=== PATIENT | female | born 1950 | race Caucasian/White ===

== ENCOUNTER 2018-01-01 19:30 | Inpatient (IN) | payer MEDICARE ==
[~2018-01-01] VITALS: Ht 165.1 cm; Wt 74.8 kg
[~2018-01-01 19:30] MED LIST: DEPA250T PO; FERR324T4 PO; GABA300C3 PO; HYDR-2768 PO; LEXA20TA PO; LISI-363 PO; LORC10TA PO; PROM25SU8 PO; ZITH500T PO; ZOCO80TA PO
[2018-01-01 19:39] VITALS: BP 196/88; PULSE 65; RESP 20; TEMP 97.8; O2SAT 98
[2018-01-01] MEDS ORDERED: ONDANSETRON HCL 4 MG/2 ML VIAL ONE (19:57)
[2018-01-01] MEDS ORDERED: DICY20TA10 PO (20:03)
[2018-01-01] MEDS ORDERED: FENO160T PO (20:03)
[2018-01-01] MEDS ORDERED: PRAV40TA2 PO (20:03)
[2018-01-01] MEDS ORDERED: VORT1TAB3 PO (20:03)
[2018-01-01] MEDS ORDERED: LISI-515 PO (20:03)
[2018-01-01] MEDS ORDERED: RANI150T PO (20:03)
[2018-01-01] MEDS ORDERED: HYDR25TA5 PO (20:03)
[2018-01-01 20:04] VITALS: O2SAT 96
[2018-01-01 20:13] LABS: AUTOMATED NEUTROPHIL # 4.1 TH/MM3 (1.8-7.7); BASOPHIL # 0.1 TH/MM3 (0-0.2); BASOPHIL % 1.7 % (0.0-2.0); EOSINOPHIL # 0.1 TH/MM3 (0-0.4); EOSINOPHIL % 1.9 % (0.0-4.0); LYMPH % 25.8 % (9.0-44.0); LYMPHOCYTE # 1.7 TH/MM3 (1.0-4.8); MEAN CELL VOLUME 89.5 FL (80.0-100.0); MEAN CORPUSCULAR HEMOGLOBIN 29.1 PG (27.0-34.0); MEAN CORPUSCULAR HGB CONC 32.6 % (32.0-36.0); MEAN PLATELET VOLUME 10.3 FL (7.0-11.0); MONO % 8.2 % (0.0-8.0); MONOCYTE # 0.5 TH/MM3 (0-0.9); NEUT % 62.4 % (16.0-70.0); PLATELET COUNT 198 TH/MM3 (150-450); RED BLOOD COUNT 5.48 MIL/MM3 (4.00-5.30); RED CELL DISTRIBUTION WIDTH 13.5 % (11.6-17.2); WHITE BLOOD COUNT 6.4 TH/MM3 (4.0-11.0)
[2018-01-01] MEDS ORDERED: ONDANSETRON HCL 4 MG/2 ML VIAL IV PUSH ONE (20:15)
[2018-01-01 20:23] LABS: CHLORIDE 104 MEQ/L (98-107); SODIUM (NA) 140 MEQ/L (136-145)
[2018-01-01 20:27] LABS: ALBUMIN 4.1 GM/DL (3.4-5.0); BICARBONATE 28.5 MEQ/L (21.0-32.0); BLOOD UREA NITROGEN 23 MG/DL (7-18); GLUCOSE,RANDOM 123 MG/DL (74-106)
[2018-01-01 20:30] LABS: ALT (GPT) 766 U/L (10-53); GLOMERULAR FILTRATION RATE 45 ML/MIN (>89)
[2018-01-01] MEDS ORDERED: KETOROLAC TROMETHAMINE 30 MG/ML (IVP) VIAL IV PUSH ONE (20:30)
[2018-01-01] MEDS ORDERED: SODIUM CHLOR 0.9% 1000 ML INJ 1,000 ML IV ONE (20:30)
[2018-01-01 20:31] LABS: TOTAL BILIRUBIN ADULT 1.5 MG/DL (0.2-1.0)
--- NOTE | 2018-01-01 20:31 | PD ---
HPI Chief Complaint: Abdominal Pain Time Seen by Provider: 20:16 Travel History International Travel<30 days: No Contact w/Intl Traveler<30days: No Traveled to known affect area: No History of Present Illness HPI Patient is a 67-year-old female with history of hypertension and hyperlipidemia and diabetes who presents to emergency room with complaints of epigastric pain. Patient reports that she has had this abdominal pain for the past 3 days, patient reports that pain has been persistent. Patient reports the pain has been more severe today prompting her to come to the emergency room for evaluation. Patient reports that while waiting the emergency room, she began to feel nauseous and had one episode of vomiting. Patient reports that pain started abruptly 3 days ago, she is unsure as to nature of the pain. Patient reports that nothing makes the pain better or worse. Patient reports that she has a normal appetite, denies any chest pain or shortness of breath. Patient denies any constipation or diarrhea, denies history of similar symptoms in the past. Patient did report that she recently had a cholecystectomy at the end of last year. Patient unsure of who her surgeon was. Patient with no fever or chills, no sick contacts. PFSH Past Medical History Depression: Yes High Cholesterol: Yes Diabetes: Yes (HX of but not anymore) Patient Takes Glucophage: No Diminished Hearing: No GERD: Yes Hypertension: Yes Seizures: Yes Tetanus Vaccination: Unknown Influenza Vaccination: Yes Past Surgical History Abdominal Surgery: Yes (hernia) Cholecystectomy: Yes Hysterectomy: Yes Neurologic Surgery: Yes (NECK SURGERY WITH HALO) Social History Alcohol Use: No Tobacco Use: No Substance Use: No Allergies-Medications (Allergen,Severity, Reaction): Coded Allergies: Sulfa (Sulfonamide Antibiotics) (Verified Allergy, Severe, Rash, 01/01/18) codeine (Verified Allergy, Severe, Rash, 01/01/18) penicillin V (Verified Allergy, Severe, 01/01/18) Reported Meds & Prescriptions Reported Meds & Active Scripts Active Reported Fenofibrate 160 Mg Tab 200 Mg PO DAILY Dicyclomine (Dicyclomine HCl) 20 Mg Tab 20 Mg PO BID Ranitidine (Ranitidine HCl) 150 Mg Tab 150 Mg PO BID Hydrochlorothiazide 25 Mg Tab 25 Mg PO DAILY Lisinopril 20 Mg Tab 20 Mg PO DAILY Pravastatin 40 Mg Tab 40 Mg PO DAILY Trintellix (Vortioxetine) 20 Mg Tab 20 Mg PO DAILY Review of Systems General / Constitutional: No: Fever Eyes: No: Visual changes HENT: No: Headaches Cardiovascular: No: Chest Pain or Discomfort Respiratory: No: Shortness of Breath Gastrointestinal: Positive: Nausea, Vomiting, Abdominal Pain Genitourinary: No: Dysuria Musculoskeletal: No: Pain Skin: No Rash Neurologic: No: Weakness Psychiatric: No: Depression Endocrine: No: Polydipsia Hematologic/Lymphatic: No: Easy Bruising Physical Exam Narrative GENERAL: Moderate distress SKIN: Focused skin assessment warm/dry. HEAD: Atraumatic. Normocephalic. EYES: Pupils equal and round. No scleral icterus. No injection or drainage. ENT: No nasal bleeding or discharge. Mucous membranes pink and moist. NECK: Trachea midline. No JVD. CARDIOVASCULAR: Regular rate and rhythm. No murmur appreciated. RESPIRATORY: No accessory muscle use. Clear to auscultation. Breath sounds equal bilaterally. GASTROINTESTINAL: Abdomen soft, increased tenderness to the upper abdomen with guarding on exam, nondistended. Hepatic and splenic margins not palpable. MUSCULOSKELETAL: No obvious deformities. No clubbing. No cyanosis. No edema. NEUROLOGICAL: Awake and alert. No obvious cranial nerve deficits. Motor grossly within normal limits. Normal speech. PSYCHIATRIC: Appropriate mood and affect; insight and judgment normal. Data Data Last Documented VS Vital Signs Date Time Temp Pulse Resp B/P (MAP) Pulse Ox O2 Delivery O2 Flow Rate FiO2 01/01/18 21:43 70 16 147/77 (100) 94 Room Air 01/01/18 19:39 97.8 Orders Orders Complete Blood Count With Diff (01/01/18 19:55) Comprehensive Metabolic Panel (01/01/18 19:55) Urinalysis - C+S If Indicated (01/01/18 19:55) Iv Access Insert/Monitor (01/01/18 19:55) Oxygen Administration (01/01/18 19:55) Oximetry (01/01/18 19:55) Lipase (01/01/18 19:55) Ondansetron Inj (Zofran Inj) (01/01/18 19:57) Ondansetron Inj (Zofran Inj) (01/01/18 20:15) Electrocardiogram (01/01/18 ) Ckmb (Isoenzyme) Profile (01/01/18 20:24) Troponin I (01/01/18 20:24) Ecg Monitoring (01/01/18 20:24) Sodium Chlor 0.9% 1000 Ml Inj (Ns 1000 M (01/01/18 20:30) Ketorolac Inj (Toradol Inj) (01/01/18 20:30) Ct Abd/Pel W Iv Contrast(Rout) (01/01/18 20:37) Iohexol 350 Inj (Omnipaque 350 Inj) (01/01/18 21:06) Admit Order (Ed Use Only) (01/01/18 22:08) Labs Laboratory Tests Test 01/01/18 20:00 White Blood Count 6.4 TH/MM3 Red Blood Count 5.48 MIL/MM3 Hemoglobin 16.0 GM/DL Hematocrit 49.0 % Mean Corpuscular Volume 89.5 FL Mean Corpuscular Hemoglobin 29.1 PG Mean Corpuscular Hemoglobin Concent 32.6 % Red Cell Distribution Width 13.5 % Platelet Count 198 TH/MM3 Mean Platelet Volume 10.3 FL Neutrophils (%) (Auto) 62.4 % Lymphocytes (%) (Auto) 25.8 % Monocytes (%) (Auto) 8.2 % Eosinophils (%) (Auto) 1.9 % Basophils (%) (Auto) 1.7 % Neutrophils # (Auto) 4.1 TH/MM3 Lymphocytes # (Auto) 1.7 TH/MM3 Monocytes # (Auto) 0.5 TH/MM3 Eosinophils # (Auto) 0.1 TH/MM3 Basophils # (Auto) 0.1 TH/MM3 CBC Comment DIFF FINAL Differential Comment Blood Urea Nitrogen 23 MG/DL Creatinine 1.20 MG/DL Random Glucose 123 MG/DL Total Protein 8.0 GM/DL Albumin 4.1 GM/DL Calcium Level 10.0 MG/DL Alkaline Phosphatase 125 U/L Aspartate Amino Transf (AST/SGOT) 1357 U/L Alanine Aminotransferase (ALT/SGPT) 766 U/L Total Bilirubin 1.5 MG/DL Sodium Level 140 MEQ/L Potassium Level 3.8 MEQ/L Chloride Level 104 MEQ/L Carbon Dioxide Level 28.5 MEQ/L Anion Gap 8 MEQ/L Estimat Glomerular Filtration Rate 45 ML/MIN Total Creatine Kinase 100 U/L Troponin I 0.04 NG/ML Lipase 259 U/L MDM Medical Decision Making Medical Screen Exam Complete: Yes Emergency Medical Condition: Yes Medical Record Reviewed: Yes Interpretation(s) EKG at 2019: NSR at 64bpm, qt/qtc: 412/421, st seg depression V1-V6, there are no prior ekg's to compare Vital Signs Date Time Temp Pulse Resp B/P (MAP) Pulse Ox O2 Delivery O2 Flow Rate FiO2 01/01/18 20:04 96 Room Air 01/01/18 19:39 97.8 65 20 196/88 (124) 98 Differential Diagnosis ACS, ischemia, arrhythmia, gastritis, gastroenteritis, gastric ulcer, pancreatitis, electrolyte abnormality, retained gallstone Narrative Course Patient is a 67-year-old female who presents to emergency room with complaints of epigastric pain which has been ongoing and persistent for the past 3 days During the course of the patients emergency department visit, the patients history, examination, and differential diagnosis were reviewed with the patient. The patient was placed on a cushion spring assembler with oximetry and frequent blood pressure monitoring. The patient had an IV access obtained and blood work sent for analysis. The patient was initially provided IV fluids, IV Zofran and Toradol The patients laboratory studies were reviewed and remarkable for: Laboratory Tests Test 01/01/18 20:00 White Blood Count 6.4 TH/MM3 (4.0-11.0) Red Blood Count 5.48 MIL/MM3 (4.00-5.30) Hemoglobin 16.0 GM/DL (11.6-15.3) Hematocrit 49.0 % (35.0-46.0) Mean Corpuscular Volume 89.5 FL (80.0-100.0) Mean Corpuscular Hemoglobin 29.1 PG (27.0-34.0) Mean Corpuscular Hemoglobin Concent 32.6 % (32.0-36.0) Red Cell Distribution Width 13.5 % (11.6-17.2) Platelet Count 198 TH/MM3 (150-450) Mean Platelet Volume 10.3 FL (7.0-11.0) Neutrophils (%) (Auto) 62.4 % (16.0-70.0) Lymphocytes (%) (Auto) 25.8 % (9.0-44.0) Monocytes (%) (Auto) 8.2 % (0.0-8.0) Eosinophils (%) (Auto) 1.9 % (0.0-4.0) Basophils (%) (Auto) 1.7 % (0.0-2.0) Neutrophils # (Auto) 4.1 TH/MM3 (1.8-7.7) Lymphocytes # (Auto) 1.7 TH/MM3 (1.0-4.8) Monocytes # (Auto) 0.5 TH/MM3 (0-0.9) Eosinophils # (Auto) 0.1 TH/MM3 (0-0.4) Basophils # (Auto) 0.1 TH/MM3 (0-0.2) CBC Comment DIFF FINAL Differential Comment Blood Urea Nitrogen 23 MG/DL (7-18) Creatinine 1.20 MG/DL (0.50-1.00) Random Glucose 123 MG/DL (74-106) Total Protein 8.0 GM/DL (6.4-8.2) Albumin 4.1 GM/DL (3.4-5.0) Calcium Level 10.0 MG/DL (8.5-10.1) Alkaline Phosphatase 125 U/L (45-117) Aspartate Amino Transf (AST/SGOT) 1357 U/L (15-37) Alanine Aminotransferase (ALT/SGPT) 766 U/L (10-53) Total Bilirubin 1.5 MG/DL (0.2-1.0) Sodium Level 140 MEQ/L (136-145) Potassium Level 3.8 MEQ/L (3.5-5.1) Chloride Level 104 MEQ/L (98-107) Carbon Dioxide Level 28.5 MEQ/L (21.0-32.0) Anion Gap 8 MEQ/L (5-15) Estimat Glomerular Filtration Rate 45 ML/MIN (>89) Total Creatine Kinase 100 U/L (26-192) Troponin I 0.04 NG/ML (0.02-0.05) Lipase 259 U/L (73-393) Radiology studies were reviewed and remarkable for: Last Impressions Abdomen/Pelvis CT 01/01/182036 Signed Impressions: Service Date/Time: Monday, January 01, 2018 20:49 - CONCLUSION: There is biliary ductal dilatation to about 17 mm. There is a small gallstone in the distal common bile duct measuring about 3 mm in diameter which may be related to the ductal dilatation. Intrahepatic ductal dilatation is minimal. Jakub Dnog MD ADDENDUM: Postoperative cholecystectomy. Common bile duct measures up to 17 mm in diameter with a 3 mm gallstone in the distal common bile duct. Jakub Dong MD Patient reevaluated, patient with transaminitis. Patient CT of the abdomen and pelvis shows a common bile duct which measures up to 17 mm with a 3 mm gallstone in the distal common bile duct. Patient will require admission to the hospital as well as ERCP for stone extraction. This was reviewed with patient in detail, she is agreeable to admission to hospital patient had cholecystectomy in jul 2018 in [place] Diagnosis Primary Impression: Cholelithiases Qualified Codes: K80.51 - Calculus of bile duct without cholangitis or cholecystitis with obstruction Additional Impression: Transaminitis Admitting Information Admitting Physician Requests: Heather Stack DO Jan 01, 2018 20:31
[2018-01-01 20:33] LABS: ALKALINE PHOSPHATASE 125 U/L (45-117)
[2018-01-01 20:37] LABS: AST (GOT) 1357 U/L (15-37)
[2018-01-01 20:56] LABS: TROPONIN I 0.04 NG/ML (0.02-0.05)
[2018-01-01] MEDS ORDERED: IOHEXOL 350 MG/ML 10 ML VIAL (for RAD DIAG) IVCONTRAST ONE (21:06)
--- NOTE | 2018-01-01 21:20 | RADRPT ---
EXAM DATE/TIME: 01/01/2018 20:49 This report includes an Addendum and supersedes previous reports for this exam. [facility] COMPARISON: No previous studies available for comparison. INDICATIONS : Epigastric pain for three days. IV CONTRAST: 75 cc Omnipaque 350 (iohexol) IV ORAL CONTRAST: No oral contrast ingested. RADIATION DOSE: 14.24 CTDIvol (mGy) MEDICAL HISTORY : Hypertension. Gastroesophageal reflux disease. SURGICAL HISTORY : Cholecystectomy. Hysterectomy.Hernia repair. ENCOUNTER: Initial ACUITY: 3 days PAIN SCALE: 8/10 LOCATION: Bilateral upper quadrant TECHNIQUE: Volumetric scanning of the abdomen and pelvis was performed. Using automated exposure control and adjustment of the mA and/or kV according to patient size, radiation dose was kept as low as reasonably achievable to obtain optimal diagnostic quality images. DICOM format image data is av ailable electronically for review and comparison. FINDINGS: There is linear atelectasis and scarring at the lung bases. No effusion. Mild fatty liver. Spleen, adrenals, kidneys and pancreas unremarkable. Small exophytic left renal cys t. Inferior vena cava filter noted. Previous cholecystectomy and hysterectomy. Common bile duct mildly prominent about 17 mm which may be related to approximately 3 mm calcified gallstone in the distal common bile duct. Small fat containing umbilical hernia. No pelvic masses or free fluid. No adenopathy. CONCLUSION: There is biliary ductal dilatation to about 17 mm. There is a small gallstone in the distal common bi le duct measuring about 3 mm in diameter which may be related to the ductal dilatation. Intrahepatic ductal dilatation is minimal. Jakub Dong MD on January 01, 2018 at 21:11 Board Certified Radiologist. This report was verified electronically. ADDENDUM: Postoperative cholecystectomy. Common bile duct measures up to 17 mm in diameter with a 3 mm gallston e in the distal common bile duct. Jakub Dong MD on January 01, 2018 at 21:21 Board Certified Radiologist. This report was verified electronically.
--- NOTE | 2018-01-01 21:32 | EKG ---
Date Performed: 01/01/2018 Time Performed: 20:20:31 PTAGE: 67 years EKG: Sinus rhythm BORDERLINE LEFT AXIS DEVIATION Nonspecific ST and T wave abnormalities ABNORMAL ECG NO PREVIOUS TRACING DOCTOR: Julio Burroughs Interpretating Date/Time 01/01/2018 21:32:37
[2018-01-01 21:43] VITALS: BP 147/77; PULSE 70; RESP 16; O2SAT 94
[2018-01-01] MEDS ORDERED: ONDANSETRON HCL 4 MG/2 ML VIAL IVP PRN (22:15)
[2018-01-01] MEDS ORDERED: SODIUM CHLORIDE 0.9% FLUSH 10 ML FLUSH IV FLUSH PRN (22:15)
[2018-01-01] MEDS ORDERED: NALOXONE HCL 0.4 MG/ML AMP IV PUSH PRN (22:15)
[2018-01-01] MEDS: SODIUM CHLOR 0.9% 1000 ML INJ 1,000 ML IV SCH (22:29)
[2018-01-01 23:15] VITALS: BP 143/75; PULSE 89; RESP 18; TEMP 97.7; O2SAT 96
[2018-01-01 23:15] LABS: BILIRUBIN, URINE NEG (NEG); BLOOD, URINE NEG (NEG); GLUCOSE,URINE NEG (NEG); KETONE, URINE NEG (NEG); NITRITE,URINE NEG (NEG); PH, URINE 7.5 (5.0-8.5); URINE COLOR YELLOW (YELLW/STRAW); URINE LEUKOCYTE ESTERASE NEG (NEG)
[2018-01-01 23:26] LABS: SQUAMOUS EPITHELIAL CELL URINE 0-5 /hpf (0-5)
[2018-01-01] MEDS: KETOROLAC TROMETHAMINE 30 MG/ML (IVP) VIAL IV PUSH PRN (23:36)
[2018-01-02 07:49] LABS: AUTOMATED NEUTROPHIL # 2.7 TH/MM3 (1.8-7.7); BASOPHIL % 0.6 % (0.0-2.0); EOSINOPHIL # 0.1 TH/MM3 (0-0.4); EOSINOPHIL % 2.3 % (0.0-4.0); HEMATOCRIT 42.4 % (35.0-46.0); HEMOGLOBIN 13.9 GM/DL (11.6-15.3); LYMPH % 27.8 % (9.0-44.0); LYMPHOCYTE # 1.2 TH/MM3 (1.0-4.8); MEAN CELL VOLUME 90.7 FL (80.0-100.0); MEAN CORPUSCULAR HEMOGLOBIN 29.6 PG (27.0-34.0); MEAN CORPUSCULAR HGB CONC 32.7 % (32.0-36.0); MEAN PLATELET VOLUME 10.9 FL (7.0-11.0); MONO % 7.7 % (0.0-8.0); MONOCYTE # 0.3 TH/MM3 (0-0.9); NEUT % 61.6 % (16.0-70.0); PLATELET COUNT 151 TH/MM3 (150-450); RED BLOOD COUNT 4.68 MIL/MM3 (4.00-5.30); RED CELL DISTRIBUTION WIDTH 13.4 % (11.6-17.2); WHITE BLOOD COUNT 4.3 TH/MM3 (4.0-11.0)
[2018-01-02 07:52] LABS: CHLORIDE 108 MEQ/L (98-107); SODIUM (NA) 142 MEQ/L (136-145)
[2018-01-02 08:00] VITALS: BP 149/93; PULSE 64; RESP 18; TEMP 97.6; O2SAT 96
[2018-01-02] MEDS: SODIUM CHLOR 0.9% 1000 ML INJ 1,000 ML IV SCH ×2 (08:09→17:39)
[2018-01-02 08:19] LABS: ALBUMIN 3.2 GM/DL (3.4-5.0); ALKALINE PHOSPHATASE 105 U/L (45-117); ALT (GPT) 1029 U/L (10-53); AST (GOT) 1484 U/L (15-37); BICARBONATE 28.6 MEQ/L (21.0-32.0); BLOOD UREA NITROGEN 19 MG/DL (7-18); CALCIUM 8.8 MG/DL (8.5-10.1); GLOMERULAR FILTRATION RATE 55 ML/MIN (>89); GLUCOSE,RANDOM 92 MG/DL (74-106); TOTAL BILIRUBIN ADULT 1.7 MG/DL (0.2-1.0); TOTAL PROTEIN 6.3 GM/DL (6.4-8.2)
[2018-01-02] MEDS: SODIUM CHLORIDE 0.9% FLUSH 10 ML FLUSH IV FLUSH SCH ×2 (09:00→20:48)
--- NOTE | 2018-01-02 09:17 | MB ---
cc: Stephanie Mart MD DATE: 01/02/2018 REFERRING PHYSICIAN: Dr. Mckeon. REASON FOR CONSULTATION: Common bile duct stone. HISTORY OF PRESENT ILLNESS: Ms. Gilbert is a 67-year-old lady with no major medical problems, came to the emergency room with complaint of severe abdominal pain starting last night after dinner. The patient stated she was having pain on and off for a couple of days, some nausea, but last night the pain became severe, so she came to the emergency room for further evaluation and treatment. She did have nausea and 1 episode of vomiting today . No further episodes since admission. She denies any diarrhea, melena, hematemesis or hematochezia. She had a cholecystectomy back in 07/2017 up [place] for what appears to be cholecystitis. She does not recall having any additional procedures like ERCP. She is unaware of any common bile duct stones at that time. PAST MEDICAL HISTORY: Depression, high cholesterol, diabetes, reflux, hypertension, seizure disorder, status post a traumatic brain injury. She had a history of scarring of the trachea, recently had dilatation. PAST SURGICAL HISTORY: Hernia repair, cholecystectomy, hysterectomy, neck surgery with halo, traumatic brain injury, had a dilatation of the trachea recently. SOCIAL HISTORY: Denies any smoking, drinking, or drug use. ALLERGIES: SULFA, CODEINE, AND PENICILLIN. MEDICATIONS: Fenofibrate, dicyclomine, ranitidine, hydrochlorothiazide, lisinopril, pravastatin, Trintellix. FAMILY HISTORY: No family history of colon cancer or any GI pathology. REVIEW OF SYSTEMS: She denies any fever, chills, weight loss or weight gain. ENT: No alteration of baseline hearing or visual acuity. PULMONARY: Denies any chest pain, shortness of breath. GASTROINTESTINAL: As above. GENITOURINARY: Denies dysuria or hematuria. HEMATOLOGICAL: No history of anemia or bleeding disorder. SKIN: No alteration of baseline skin lesion. NEUROLOGIC: No history of TIA or CVA kind of symptoms. PHYSICAL EXAMINATION: GENERAL: On clinical exam, she is sitting comfortably in bed in no acute distress. VITAL SIGNS: Temperature is 97.7, pulse 89, respirations 18, blood pressure 143/75, pulse oximetry 96. HEENT: PERRLA. NECK: No JVD. No lymphadenopathy. CHEST: Clear to auscultation and palpation. CARDIOVASCULAR: S1, S2. No murmur. ABDOMEN: Soft, nontender. Bowel sounds are present. CENTRAL NERVOUS SYSTEM: Awake, alert, oriented x 3. No focal signs identified. LABORATORY DATA: Her white count is 6.4, hemoglobin 16, platelet count 198. CMP: Potassium 3.3, chloride 108, BUN 19, creatinine 1, total bilirubin 1.7, AST 1484, ALT 1029. CT abdomen and pelvis was suggestive of a common bile duct stone. Biliary ductal dilatation at 17 mm, status post cholecystectomy, intrahepatic ductal dilatation minimal postop cholecystectomy. IMPRESSION: Ms. Gilbert is a very pleasant 67-year-old lady with history of cholecystectomy last year, admitted to the hospital with nausea, vomiting, abdominal pain. CT abdomen and pelvis suggestive of common bile duct stone. RECOMMENDATIONS: ERCP will be scheduled. Risks and benefits of the above procedure were discussed with the patient. Possible sphincterotomy with a stent placement. The patient is to be transferred to the main as ERCP cannot be done in [place]. This was also discussed with the nurses and the patient. Monitor LFTs closely. Hepatitis profile. I would like to thank Dr. Mckeon for referring her to our office for consultation. Thank you again. We will continue to follow the patient along with you. Stephanie Mart MD BSB/TL , 08:39 AM , 09:15 AM [facility]
[2018-01-02] MEDS ORDERED: DEXAMETHASONE SOD PHOS 4 MG/ML VIAL IV ONE (12:00)
[2018-01-02] MEDS ORDERED: ROCURONIUM INJ 50 MG/5 ML SYRINGE IV PUSH ONE (13:25)
--- NOTE | 2018-01-02 14:23 | PD.PROCEDR ---
GI Procedure PROCEDURE PERFORMED ERCP, sphincterotomy, balloon sweep of the duct and removal of sludge and small stone INDICATION FOR PROCEDURE Dilated common bile duct, abnormal imaging on CT scan, elevated liver function test PROCEDURE: The procedure, risks and benefits were discussed with Ms. Gilbert and informed consent was obtained. Anesthesia sedated her with Diprivan. She was placed in the left lateral decubitus position. ERCP: Patient was placed in a prone position. The Pentax videoscope was introduced through the oropharynx and advanced to the second portion of the duodenum where the ampula was identified. Cholangiogram was performed, pancreatic duct was normal, common bile duct dilated with small filling defect in the distal common bile duct sphincterotomy was performed sweeping the duct with an 11.5 and 15 mm revealed small amount sludge and small stone, end of case included cholangiogram did not show any filling defect, bile flow from the common bile duct at the end of the case without any obvious obstruction ESTIMATED BLOOD LOSS: None SPECIMENS REMOVED: Antrum COMPLICATIONS: None IMPRESSION: EGD limited exam patient has duodenal ulcerations and gastritis biopsy from the antrum to rule out H. pylori Ampulla was normal Pancreatic duct was normal Common bile duct was dilated with filling defect status post sphincterotomy and stone with sludge removed end of case included cholangiogram was negative for filling defect with free bile flow PLAN: Nothing by mouth until tomorrow Liver function test Await biopsy results No NSAIDs Protonix 40 mg daily Tony Mora MD Jan 02, 2018 14:23
[2018-01-02] MEDS ORDERED: PANTOPRAZOLE SOD 20 MG DELAYED RELEASE TAB PO SCH (14:30)
[2018-01-02] MEDS ORDERED: DO NOT ADM ANY ANTICOAGULANT DRUGS PRN (14:32)
[2018-01-02] MEDS ORDERED: RESP: RACEPINEPHRINE 2.25% 0.5 ML NEB ONE (14:37)
[2018-01-02] MEDS ORDERED: MORPHINE SULFATE 2 MG/ML SYRINGE ONE (15:09)
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
[2018-01-02] MEDS ORDERED: POTASSIUM CHLORIDE 25 MEQ EFFERVESCENT TAB PO ONE (16:00)
[2018-01-02] MEDS ORDERED: RESP: ALBUTEROL 2.5 MG/IPRATROPIUM 0.5 MG NEB (PRN) NEB (16:00)
--- NOTE | 2018-01-02 16:20 | RADRPT ---
EXAM DATE/TIME: 01/02/2018 15:47 [facility] COMPARISON: CT ABDOMEN & PELVIS W CONTRAST, January 01, 2018, 20:49. INDICATIONS : Difficulty breathing. MEDICAL HISTORY : Hypertension. Gastroesophageal reflux disease. SURGICAL HISTORY : Cholecystectomy. Hysterectomy.Hernia repair. ENCOUNTER: Initial ACUITY: 1 day PAIN SCORE: 0/10 LOCATION: Bilateral chest FINDINGS: Portable AP view of the chest demonstrates a normal-sized cardiac silhouette with calcification of th e aorta. Lungs are underinflated and there is a linear opacity in the right lower lung zone. No pleur al effusion or pneumothorax is identified. The bones and soft tissues demonstrate no acute finding. L eft proximal humerus has features suggesting old healed fracture. There are likely old right rib frac tures. CONCLUSION: Linear opacity at the right lung base representing either subsegmental atelectasis or scar. Otherwise , no acute finding is identified. Jose Alejandro Calvo MD on January 02, 2018 at 16:15 Board Certified Radiologist. This report was verified electronically.
--- NOTE | 2018-01-02 16:34 | RADRPT ---
EXAM DATE/TIME: 01/02/2018 14:03 [facility] COMPARISON: No previous studies available for comparison. INDICATIONS : biopsy of common bile duct FLUORO TIME: 2 minutes IMAGE COUNT: 8 CONTRAST: Instilled by Ordering Physician MEDICAL HISTORY : Hypertension. Gastroesophageal reflux disease. SURGICAL HISTORY : Cholecystectomy. Hysterectomy.Hernia repair. ENCOUNTER: Subsequent ACUITY: 2 days PAIN SCORE: Non-responsive. LOCATION: Right upper quadrant abdomen FINDINGS: An ERCP was performed by the ordering physician. Multiple images are submitted for review. Contrast opacifies the distal common bile duct which is pro minent in caliber. No filling defect is noted. A balloon is noted within the distal common bile duct. CONCLUSION: ERCP as above. Elgin Palomo MD on January 02, 2018 at 16:29 Board Certified Radiologist. This report was verified electronically.
[2018-01-02] MEDS: methylPREDNISolone SOD SUCC 40 MG/1 ML VIAL IV PUSH SCH (17:39)
[2018-01-02] MEDS: KETOROLAC TROMETHAMINE 30 MG/ML (IVP) VIAL IV PUSH PRN (17:42)
[2018-01-02 18:37] VITALS: BP 151/90; PULSE 64; RESP 16; TEMP 97.4; O2SAT 95
[2018-01-02 20:00] VITALS: BP 146/76; PULSE 56; RESP 18; TEMP 96.9; O2SAT 94
[2018-01-02] MEDS: FAMOTIDINE 20 MG TAB PO SCH (20:49)
[2018-01-02] MEDS: DICYCLOMINE HCL 20 MG TAB PO SCH (20:49)
[2018-01-02] MEDS: RESP: ALBUTEROL 2.5 MG/IPRATROPIUM 0.5 MG NEB (SCH) NEB (21:20)
[2018-01-03] VITALS: BP 113/56; PULSE 62; RESP 18; TEMP 96.6; O2SAT 95
[2018-01-03] MEDS: methylPREDNISolone SOD SUCC 40 MG/1 ML VIAL IV PUSH SCH ×2 (00:07→05:52)
[2018-01-03] MEDS: KETOROLAC TROMETHAMINE 30 MG/ML (IVP) VIAL IV PUSH PRN (00:08)
[2018-01-03] MEDS: RESP: ALBUTEROL 2.5 MG/IPRATROPIUM 0.5 MG NEB (SCH) NEB ×2 (03:02→09:50)
[2018-01-03] MEDS: SODIUM CHLOR 0.9% 1000 ML INJ 1,000 ML IV SCH (05:51)
[2018-01-03 06:37] LABS: CHLORIDE 107 MEQ/L (98-107); SODIUM (NA) 141 MEQ/L (136-145)
[2018-01-03 06:39] LABS: AUTOMATED NEUTROPHIL # 6.6 TH/MM3 (1.8-7.7); BASOPHIL % 0.5 % (0.0-2.0); EOSINOPHIL % 0.1 % (0.0-4.0); HEMATOCRIT 40.2 % (35.0-46.0); HEMOGLOBIN 13.5 GM/DL (11.6-15.3); LYMPH % 5.4 % (9.0-44.0); LYMPHOCYTE # 0.4 TH/MM3 (1.0-4.8); MEAN CELL VOLUME 90.4 FL (80.0-100.0); MEAN CORPUSCULAR HEMOGLOBIN 30.4 PG (27.0-34.0); MEAN CORPUSCULAR HGB CONC 33.7 % (32.0-36.0); MEAN PLATELET VOLUME 10.7 FL (7.0-11.0); MONO % 1.1 % (0.0-8.0); MONOCYTE # 0.1 TH/MM3 (0-0.9); NEUT % 92.9 % (16.0-70.0); PLATELET COUNT 136 TH/MM3 (150-450); RED BLOOD COUNT 4.44 MIL/MM3 (4.00-5.30); RED CELL DISTRIBUTION WIDTH 13.5 % (11.6-17.2); WHITE BLOOD COUNT 7.1 TH/MM3 (4.0-11.0)
[2018-01-03 06:44] LABS: ALBUMIN 3.1 GM/DL (3.4-5.0); BICARBONATE 20.7 MEQ/L (21.0-32.0); CALCIUM 8.9 MG/DL (8.5-10.1)
[2018-01-03 06:46] LABS: DIRECT BILIRUBIN ADULT 0.3 MG/DL (0.0-0.2)
[2018-01-03 06:48] LABS: INDIRECT BILIRUBIN 0.4 MG/DL (0.0-0.8); TOTAL BILIRUBIN ADULT 0.7 MG/DL (0.2-1.0); TOTAL PROTEIN 6.3 GM/DL (6.4-8.2)
[2018-01-03 06:51] LABS: ALKALINE PHOSPHATASE 109 U/L (45-117); ALT (GPT) 821 U/L (10-53); AST (GOT) 568 U/L (15-37); BLOOD UREA NITROGEN 19 MG/DL (7-18); GLOMERULAR FILTRATION RATE 41 ML/MIN (>89); GLUCOSE,RANDOM 195 MG/DL (74-106); TOTAL BILIRUBIN ADULT 0.7 MG/DL (0.2-1.0); TOTAL PROTEIN 6.4 GM/DL (6.4-8.2)
[2018-01-03 07:50] VITALS: BP 115/56; PULSE 72; RESP 20; TEMP 96.6; O2SAT 91
[2018-01-03] MEDS: SODIUM CHLORIDE 0.9% FLUSH 10 ML FLUSH IV FLUSH SCH (08:36)
[2018-01-03] MEDS: DICYCLOMINE HCL 20 MG TAB PO SCH (08:36)
[2018-01-03] MEDS: FAMOTIDINE 20 MG TAB PO SCH (08:36)
[2018-01-03] MEDS ORDERED: TRINTELLIX 20 MG PO SCH (09:00)
[2018-01-03] MEDS ORDERED: PANTOPRAZOLE SOD 40 MG DELAYED RELEASE TAB PO SCH (09:00)
[2018-01-03] MEDS ORDERED: HYDROCHLOROTHIAZIDE 25 MG TAB PO SCH (09:00)
[2018-01-03] MEDS ORDERED: LISINOPRIL 20 MG TAB PO SCH (09:00)
--- NOTE | 2018-01-03 09:53 | HHI.DCPOC ---
Discharge Care Plan Diagnosis: (1) Cholelithiases Goals to Promote Your Health * To prevent worsening of your condition and complications * To maintain your health at the optimal level Directions to Meet Your Goals Take your medications as prescribed Follow your dietary instruction Follow activity as directed Keep your appointments as scheduled Take your immunizations and boosters as scheduled If your symptoms worsen call your PCP, if no PCP go to Urgent Care Center or Emergency Room Smoking is Dangerous to Your Health. Avoid second hand smoke Call the 24-hour hour crisis hotline for domestic abuse at Adrián Murrell Jan 03, 2018 09:53
[2018-01-03 11:50] VITALS: BP 119/58; PULSE 92; RESP 20; TEMP 96.6; O2SAT 90
--- NOTE | 2018-01-03 15:00 | HHI.DS ---
Discharge Summary Admission Date Jan 02, 2018 at 15:48 Discharge Date: Jan 03, 2018 Admitting Diagnosis Choledolithiasis (1) Choledocholithiasis ICD Code: K80.50 - Calculus of bile duct without cholangitis or cholecystitis without obstruction Procedures ERCP IMPRESSION: EGD limited exam patient has duodenal ulcerations and gastritis biopsy from the antrum to rule out H. pylori Ampulla was normal Pancreatic duct was normal Common bile duct was dilated with filling defect status post sphincterotomy and stone with sludge removed end of case included cholangiogram was negative for filling defect with free bile flow Brief History - From Admission History from patient, ER notes, and review of medical records. Patient reported that for the past 1 or 2 weeks, she has been having abdominal pain. However it was worsened in the past few days. Last night she was no longer able to bear weight and had to come to hospital. Patient presented to [place] emergency room. She denies any fever. Had a few bouts of nausea and vomiting [facility] emergency room. She stated she did not notice the color of the vomitus because she was tired and dizzy. Denies any diarrhea. Denies seeing any blood in her stool or urine. Denies any urinary burning or pain or frequent urination. Apart from the above, patient denies chest pain/palpitations/dizziness/syncope episodes. She reports she is chronically short of breath. She has had tracheostomy placed about 10 years ago. Since then, she has been short of breath. Most recently, she was also found to have scar tissues and narrowing in her trachea and prior tracheostomy site that required surgical intervention on November 08, 2017. Upon my arrival in PACU, patient nurse reported the patient was wheezing and having tight air entry that they had to give her epinephrine and nebulizer treatments just prior. CBC/BMP: 01/03/18 0512 01/03/18 0512 Significant Findings Laboratory Tests Test 01/01/18 20:00 01/01/18 22:55 01/02/18 05:47 01/03/18 05:12 Red Blood Count 5.48 MIL/MM3 (4.00-5.30) Hemoglobin 16.0 GM/DL (11.6-15.3) Hematocrit 49.0 % (35.0-46.0) Monocytes (%) (Auto) 8.2 % (0.0-8.0) Blood Urea Nitrogen 23 MG/DL (7-18) 19 MG/DL (7-18) 19 MG/DL (7-18) Creatinine 1.20 MG/DL (0.50-1.00) 1.30 MG/DL (0.50-1.00) Random Glucose 123 MG/DL (74-106) 195 MG/DL (74-106) Alkaline Phosphatase 125 U/L (45-117) Aspartate Amino Transf (AST/SGOT) 1357 U/L (15-37) 1484 U/L (15-37) 568 U/L (15-37) Alanine Aminotransferase (ALT/SGPT) 766 U/L (10-53) 1029 U/L (10-53) 821 U/L (10-53) Total Bilirubin 1.5 MG/DL (0.2-1.0) 1.7 MG/DL (0.2-1.0) Estimat Glomerular Filtration Rate 45 ML/MIN (>89) 55 ML/MIN (>89) 41 ML/MIN (>89) Total Protein 6.3 GM/DL (6.4-8.2) Albumin 3.2 GM/DL (3.4-5.0) 3.1 GM/DL (3.4-5.0) Potassium Level 3.3 MEQ/L (3.5-5.1) Chloride Level 108 MEQ/L (98-107) Platelet Count 136 TH/MM3 (150-450) Neutrophils (%) (Auto) 92.9 % (16.0-70.0) Lymphocytes (%) (Auto) 5.4 % (9.0-44.0) Lymphocytes # (Auto) 0.4 TH/MM3 (1.0-4.8) Carbon Dioxide Level 20.7 MEQ/L (21.0-32.0) Test 01/03/18 05:45 01/03/18 07:45 Direct Bilirubin 0.3 MG/DL (0.0-0.2) Aspartate Amino Transf (AST/SGOT) 562 U/L (15-37) Alanine Aminotransferase (ALT/SGPT) 832 U/L (10-53) Total Protein 6.3 GM/DL (6.4-8.2) Albumin 3.0 GM/DL (3.4-5.0) Imaging Last Impressions GI Procedure 01/02/18 0000 Signed Impressions: Service Date/Time: Tuesday, January 02, 2018 14:03 - CONCLUSION: ERCP as above. Elgin Palomo MD Chest X-Ray 01/02/18 0000 Signed Impressions: Service Date/Time: Tuesday, January 02, 2018 15:47 - CONCLUSION: Linear opacity at the right lung base representing either subsegmental atelectasis or scar. Otherwise, no acute finding is identified. Jose Alejandro Calvo MD Abdomen/Pelvis CT 01/01/182036 Signed Impressions: Service Date/Time: Monday, January 01, 2018 20:49 - CONCLUSION: There is biliary ductal dilatation to about 17 mm. There is a small gallstone in the distal common bile duct measuring about 3 mm in diameter which may be related to the ductal dilatation. Intrahepatic ductal dilatation is minimal. Jakub Dong MD ADDENDUM: Postoperative cholecystectomy. Common bile duct measures up to 17 mm in diameter with a 3 mm gallstone in the distal common bile duct. Jakub Dong MD PE at Discharge GENERAL: Well-developed, well-nourished, in no acute distress. alert and orientated HEENT: Head is normocephalic without any lesions or masses noted. Facial features are symmetric. Eyes: Extraocular muscles are intact. Conjunctivae were clear. NECK: Supple without any masses. Trachea midline no deviation. No JVD, CARDIAC: Regular rhythm, regular rate. S1/S2 are heard. No murmurs gallops or rubs. LUNGS: Clear to auscultation bilaterally. No wheeze, rhonchi or rales. No use of accessory muscles on inspiration or expiration. ABDOMEN: Soft, nontender. Nondistended. Bowel sounds heard in all 4 quadrants. No organomegaly or masses. Negative rebound, negative guarding EXTREMITIES: No edema, pulses are equal bilaterally. No cyanosis or clubbing NEUROLOGY: Mood and affect appear appropriate. Cranial nerves II through XII grossly intact. Moving all extremities, speech is clear Hospital Course Is 67-year-old female who originally resides in [place] and down here visiting who presented with history of hypertension, hyper lipidemia, diabetes that was experiencing abdominal pain for 3 days which pain has been persistent so she came to emergency department for evaluation. Workup did indicate, bile duct measuring 17 mm with 3 mm gallstone in the distal common bile duct. She was transferred to [facility] and underwent ERCP by Dr. Mora and was transferred back to [place]. Patient was started on clear liquid diet this morning advanced to regular food at lunch. Patient tolerated well. Case was discussed with GI who indicated patient tolerating diet, laboratory studies have improved. Patient can be discharged and follow- up in 2 weeks. We will plan discharge accordingly. Pt Condition on Discharge: Stable Discharge Disposition: Discharge Home Discharge Time: > 30 minutes Discharge Instructions DIET: Follow Instructions for: Heart Healthy Diet Activities you can perform: Regular-No Restrictions Follow up Referrals: Gastroenterology - 2 Weeks PCP Follow-up - 1 Week Continued Medications: Dicyclomine (Dicyclomine) 20 Mg Tab 20 MG PO BID for Bowel Management, #90 TAB 0 Refills Fenofibrate (Fenofibrate) 160 Mg Tab 200 MG PO DAILY, #30 TAB 0 Refills Hydrochlorothiazide (Hydrochlorothiazide) 25 Mg Tab 25 MG PO DAILY, #30 TAB 0 Refills Lisinopril (Lisinopril) 20 Mg Tab 20 MG PO DAILY, #30 TAB 0 Refills Pravastatin (Pravastatin) 40 Mg Tab 40 MG PO DAILY for Cholesterol Management, #30 TAB 0 Refills Ranitidine (Ranitidine) 150 Mg Tab 150 MG PO BID for Heartburn Management, #60 TAB 0 Refills Vortioxetine (Trintellix) 20 Mg Tab 20 MG PO DAILY for Control Depression, #30 TAB 0 Refills Adrián Murrell Jan 03, 2018 15:00
== END 2018-01-03 15:00 | disposition home or self-care (01) | DRG 395 ==
LOC: PHEFT 19:30 → PHEDA 22:09 → PH3B 22:40 → HSDI 01-02 11:22 → OBSVTOIN 01-02 15:48 → PH3B 01-02 17:15
PROVIDERS: ADMIT Hospitalist; ATTEND Hospitalist
PROC: BF10YZZ Fluoroscopy of Bile Ducts using Other Contrast (ICD-10-PCS; 2018-01-02)
PROC: 0FC98ZZ Extirpation of Matter from Common Bile Duct, Via Natural or Artificial Opening Endoscopic (ICD-10-PCS; principal; 2018-01-02 13:04)
PROC: 0DB78ZX Excision of Stomach, Pylorus, Via Natural or Artificial Opening Endoscopic, Diagnostic (ICD-10-PCS; 2018-01-02 13:04)
DX: K91.86 Retained cholelithiasis following cholecystectomy (principal); K26.9 Duodenal ulcer, unspecified as acute or chronic, without hemorrhage or perforation; I10 Essential (primary) hypertension; E11.9 Type 2 diabetes mellitus without complications; K21.9 Gastro-esophageal reflux disease without esophagitis; E78.5 Hyperlipidemia, unspecified; R74.0 Nonspecific elevation of levels of transaminase and lactic acid dehydrogenase [LDH]; K29.50 Unspecified chronic gastritis without bleeding; G40.909 Epilepsy, unspecified, not intractable, without status epilepticus; R06.2 Wheezing; F32.9 Major depressive disorder, single episode, unspecified; Z87.820 Personal history of traumatic brain injury; Z88.0 Allergy status to penicillin; Z88.2 Allergy status to sulfonamides; Z88.5 Allergy status to narcotic agent
CPT/HCPCS: 71045; 74177; 74330; 80053; 80074; 80076; 81001; 82550; 83690; 84484; 85025; 88305; 88312; 93005; 94640; 94664; 96361; 96374; 96375; 96376; C1769; G0378; J1100; J1885; J2270; J2405; J2920; J3010; J7030; Q9967